=== PATIENT | female | born 1985 | race Caucasian/White ===

== ENCOUNTER 2023-04-28 04:20 | Emergency (ER) | payer OTHER ==
[2023-04-28 04:24] VITALS: BMI 26.2
[2023-04-28] MEDS ORDERED: morphine CARPU-JECT 4 MG/1 ML DISP.SYRIN IVPUSH ONE (04:53)
[2023-04-28] MEDS ORDERED: ONDANSETRON 4 MG/2 ML VIAL IVPUSH ONE (04:53)
[2023-04-28] MEDS ORDERED: LACTATED RINGERS SOLUTION 1000 ML INFUS.BAG IV ONE (04:53)
[2023-04-28] MEDS ORDERED: ONDANSETRON 4 MG/2 ML VIAL ONE (05:12)
[2023-04-28] MEDS ORDERED: morphine SULFATE 4 MG/ML VIAL ONE (05:12)
[2023-04-28] MEDS ORDERED: KETOROLAC TROMETHAMINE 15 MG/ML VIAL IVPUSH ONE (05:57)
[2023-04-28] MEDS ORDERED: KETOROLAC TROMETHAMINE 15 MG/ML VIAL ONE (06:01)
[2023-04-28] MEDS ORDERED: ACETAMINOPHEN 1000 MG/100 ML BAG IVPB ONE (06:17)
[2023-04-28 06:21] LABS: EOS % 1.8 % (0-4.5); HEMATOCRIT 40.9 % (32.4-45.2); HEMOGLOBIN 13.8 GM/dL (10.7-15.3); LYMPH % 38.8 % (8-40); MCH 30.7 pg (25.7-33.7); MCHC 33.7 g/dl (32.0-36.0); MEAN PLT VOLUME 8.3 fl (7.5-11.1); MONO % 7.5 % (3.8-10.2); NEUT % 50.9 % (42.8-82.8); PLATELET COUNT 339 10^3/uL (134-434); RBC 4.49 M/mm3 (3.60-5.2); RDW 12.6 % (11.6-15.6); WHITE BLOOD COUNT 10.4 K/mm3 (4.0-10.0)
[2023-04-28] MEDS ORDERED: ACETAMINOPHEN INJECTION 100 ML IVPB ONE (06:24)
[2023-04-28 06:41] LABS: EPI CELLS >36 /uL (0-25.1); HYALINE CASTS 0 /uL (0-3.1); PH,URINE 6.5 (5.0-8.0); URINE APPEARANCE CLEAR; URINE BACTERIA 400 /uL (0-1359); URINE BILIRUBIN NEGATIVE (NEGATIVE); URINE COLOR YELLOW; URINE GLUCOSE (UA) NEGATIVE (NEGATIVE); URINE KETONE NEGATIVE (NEGATIVE); URINE LEUK ESTERASE NEGATIVE (NEGATIVE); URINE NITRITE NEGATIVE (NEGATIVE); URINE PROTEIN NEGATIVE (NEGATIVE); URINE RBC 27 /uL (0-23.9); URINE UROBILINOGEN 0.2 mg/dL (0.2-1.0); URINE WBC 10 /uL (0-25.8)
[2023-04-28 06:46] LABS: POTASSIUM 3.4 mmol/L (3.5-5.1)
[2023-04-28 06:49] LABS: ALBUMIN 3.7 g/dl (3.4-5.0); CALCIUM 9.8 mg/dL (8.5-10.1); MAGNESIUM 1.9 mg/dL (1.8-2.4)
[2023-04-28 06:52] LABS: CREATININE 0.8 mg/dL (0.55-1.3)
[2023-04-28 06:54] LABS: BILIRUBIN,TOTAL 0.3 mg/dL (0.2-1); TOT PROT 7.4 g/dl (6.4-8.2)
[2023-04-28 10:06] VITALS: TEMP 97.9
[2023-04-28 10:42] LABS: URINE CRYSTALS RARE /hpf; YEAST NONE SEEN (NEGATIVE)
[2023-04-28 11:41] VITALS: BP 110/66; PULSE 59; RESP 16
== END 2023-04-28 11:41 | disposition home or self-care (01) ==
LOC: JER 04:20
PROC: 3E033NZ Introduction of Analgesics, Hypnotics, Sedatives into Peripheral Vein, Percutaneous Approach (ICD-10-PCS; principal; 2023-04-28)
PROC: 3E0333Z Introduction of Anti-inflammatory into Peripheral Vein, Percutaneous Approach (ICD-10-PCS; 2023-04-28)
PROC: 3E033GC Introduction of Other Therapeutic Substance into Peripheral Vein, Percutaneous Approach (ICD-10-PCS; 2023-04-28)
PROC: 3E033GC Introduction of Other Therapeutic Substance into Peripheral Vein, Percutaneous Approach (ICD-10-PCS; 2023-04-28)
DX: R10.11 Right upper quadrant pain (principal); R11.2 Nausea with vomiting, unspecified; K80.20 Calculus of gallbladder without cholecystitis without obstruction; R10.13 Epigastric pain; R19.7 Diarrhea, unspecified
CPT/HCPCS: 36415; 74177-TC; 76705-TC; 80053; 81003; 83690; 83735; 84703; 85025; 87086; 93005; 93010; 99285-25; Q9967

== ENCOUNTER → 2023-06-07 | Day surgery (SDC) | payer OTHER ==
[2023-06-01 11:50] VITALS: BMI 21.0
[~2023-06-07] MED LIST: ACETAMINOPHEN 1000 MG/100 ML BAG IVPB ONE; ACETAMINOPHEN INJECTION 100 ML IVPB ONE; BUPIVACAINE HCL/PF 0.25% (2.5MG/ML) 10 ML VIAL IJ ONE; BUPIVACAINE HCL/PF 0.25% (2.5MG/ML) 10 ML VIAL ONE; DEXAMETHASONE SOD PHOSPHATE 4 MG/1 ML VIAL ONE; FENTANYL CITRATE/PF 50 MCG/ML VIAL ONE; GLYCOPYRROLATE 0.2 MG/1 ML VIAL ONE; KETOROLAC TROMETHAMINE 30 MG/1 ML VIAL ONE; LACTATED RINGERS SOLUTION 1,000 ML IV SCH; LIDOCAINE HCL/PF 2% SDV 5ML VIAL ONE; MIDAZOLAM HCL 2 MG/2 ML SINGLE DOSE VIAL ONE; NEOSTIGMINE METHYLSULFATE 0.5 MG/1 ML - 10 ML MDV ONE; ONDANSETRON 4 MG/2 ML VIAL IVPUSH PRN; ONDANSETRON 4 MG/2 ML VIAL ONE; PROMETHAZINE HCL 25 MG/1 ML VIAL IVPB PRN; PROPOFOL 20 ML ONE; ROCURONIUM BROMIDE 50 MG/5 ML SYRINGE ONE; SEVOFLURANE 250 ML BTL ONE; ceFAZolin SODIUM 1 GM VIAL IVPB ONE; ceFAZolin SODIUM 1 GM VIAL ONE; oxyCODONE HCL 5 MG TABLET ONE; oxyCODONE HCL 5 MG TABLET PO ONE; oxyCODONE HCL 5 MG TABLET PO PRN
[2023-06-07 11:35] VITALS: RESP 16
[2023-06-07 12:56] VITALS: BP 110/71; PULSE 77; TEMP 97.6
== END | disposition home or self-care (01) ==
LOC: JASU-SURG 03:47
PROVIDERS: ATTEND Surgery
PROC: 0FT44ZZ Resection of Gallbladder, Percutaneous Endoscopic Approach (ICD-10-PCS; principal; 2023-06-07 08:00)
DX: K80.80 Other cholelithiasis without obstruction (principal)
CPT/HCPCS: 81025; 88304-TC; 94760

== ENCOUNTER 2023-11-25 13:17 | Emergency (ER) | payer OTHER ==
[2023-11-25 13:29] VITALS: BP 137/83; PULSE 68; RESP 18; TEMP 97.8; BMI 27.3
[2023-11-25] MEDS ORDERED: ACETAMINOPHEN INJECTION 100 ML IVPB ONE (14:20)
[2023-11-25] MEDS: ACETAMINOPHEN 1000 MG/100 ML BAG IVPB ONE (14:24)
[2023-11-25 14:35] LABS: HCG,QUALITATIVE URINE Positive
[2023-11-25 14:36] LABS: URINE APPEARANCE CLEAR; URINE BILIRUBIN NEGATIVE (NEGATIVE); URINE COLOR YELLOW; URINE GLUCOSE (UA) NEGATIVE (NEGATIVE); URINE KETONE TRACE (NEGATIVE); URINE LEUK ESTERASE NEGATIVE (NEGATIVE); URINE NITRITE NEGATIVE (NEGATIVE); URINE PROTEIN NEGATIVE (NEGATIVE); URINE UROBILINOGEN 0.2 mg/dL (0.2-1.0)
[2023-11-25 14:38] LABS: BASO % 0.2 % (0-2.0); HEMATOCRIT 38.4 % (32.4-45.2); HEMOGLOBIN 13.1 GM/dL (10.7-15.3); LYMPH % 21.7 % (8-40); MCH 31.8 pg (25.7-33.7); MCHC 34.2 g/dl (32.0-36.0); MEAN CELL VOLUME 93.1 fl (80-96); MEAN PLT VOLUME 7.4 fl (7.5-11.1); MONO % 6.3 % (3.8-10.2); NEUT % 70.8 % (42.8-82.8); PLATELET COUNT 310 10^3/uL (134-434); RBC 4.13 M/mm3 (3.60-5.2); RDW 14.2 % (11.6-15.6); WHITE BLOOD COUNT 14.1 K/mm3 (4.0-10.0)
[2023-11-25 14:52] LABS: POTASSIUM 3.7 mmol/L (3.5-5.1)
[2023-11-25 14:54] LABS: CALCIUM 8.8 mg/dL (8.5-10.1)
[2023-11-25 14:55] LABS: ALBUMIN 3.2 g/dl (3.4-5.0); BLOOD UREA NITROGEN 8.2 mg/dL (7-18)
[2023-11-25 14:58] LABS: CREATININE 0.5 mg/dL (0.55-1.3)
[2023-11-25 15:00] LABS: BILIRUBIN,TOTAL 0.3 mg/dL (0.2-1); TOT PROT 6.8 g/dl (6.4-8.2)
== END 2023-11-25 18:09 | disposition home or self-care (01) ==
LOC: JER 13:17
PROC: 3E030NZ Introduction of Analgesics, Hypnotics, Sedatives into Peripheral Vein, Open Approach (ICD-10-PCS; principal; 2023-11-25)
DX: O26.892 Other specified pregnancy related conditions, second trimester (principal); R10.2 Pelvic and perineal pain; R10.31 Right lower quadrant pain; R10.32 Left lower quadrant pain; O26.612 Liver and biliary tract disorders in pregnancy, second trimester; R74.01 Elevation of levels of liver transaminase levels; Z3A.18 18 weeks gestation of pregnancy
CPT/HCPCS: 36415; 76801-TC; 80053; 81003; 84702; 84703; 85025; 86850; 86900; 86901; 87086; 99284-25; J0131

== ENCOUNTER 2024-04-24 08:17 | Inpatient (IN) | payer OTHER ==
[2024-04-24 09:40] VITALS: BMI 31.5
[2024-04-24] MEDS: ELECTROLYTE-148 SOLN 1,000 ML IV SCH (09:45)
[2024-04-24 09:46] LABS: BASO % 0.4 % (0-2.0); EOS % 0.7 % (0-4.5); HEMATOCRIT 39.9 % (32.4-45.2); HEMOGLOBIN 13.8 GM/dL (10.7-15.3); LYMPH % 23.1 % (8-40); MCH 32.7 pg (25.7-33.7); MCHC 34.5 g/dl (32.0-36.0); MEAN CELL VOLUME 94.9 fl (80-96); MEAN PLT VOLUME 8.2 fl (7.5-11.1); MONO % 5.8 % (3.8-10.2); PLATELET COUNT 232 10^3/uL (134-434); RDW 13.4 % (11.6-15.6); WHITE BLOOD COUNT 8.1 K/mm3 (4.0-10.0)
[2024-04-24 09:51] LABS: INR 0.89 (0.83-1.09); PROTHROMBIN TIME (PATIENT) 10.3 SEC (9.7-13.0)
[2024-04-24 09:54] LABS: ACTIVATED PTT 26.9 SECONDS (25.2-36.5)
[2024-04-24 10:01] LABS: POTASSIUM 3.7 mmol/L (3.5-5.1)
[2024-04-24 10:04] LABS: BLOOD UREA NITROGEN 14.6 mg/dL (7-18)
[2024-04-24 10:06] LABS: CREATININE 0.8 mg/dL (0.55-1.3)
[2024-04-24] MEDS: DINOPROSTONE 10 MG VAGINAL SUPPOSITORY VG ONE ×2 (10:38→22:15)
[2024-04-24 12:17] LABS: POTASSIUM 3.9 mmol/L (3.5-5.1)
[2024-04-24 12:20] LABS: ALBUMIN 2.6 g/dl (3.4-5.0); BLOOD UREA NITROGEN 13.1 mg/dL (7-18)
[2024-04-24 12:23] LABS: CREATININE 0.7 mg/dL (0.55-1.3)
[2024-04-24 12:24] LABS: BILIRUBIN,TOTAL 0.4 mg/dL (0.2-1)
[2024-04-24 12:25] LABS: TOT PROT 5.9 g/dl (6.4-8.2)
[2024-04-24 14:06] LABS: URINE APPEARANCE CLEAR; URINE BILIRUBIN NEGATIVE (NEGATIVE); URINE COLOR YELLOW; URINE GLUCOSE (UA) NEGATIVE (NEGATIVE); URINE KETONE 1+ (NEGATIVE); URINE LEUK ESTERASE NEGATIVE (NEGATIVE); URINE NITRITE NEGATIVE (NEGATIVE); URINE PROTEIN NEGATIVE (NEGATIVE)
[2024-04-25] MEDS ORDERED: MISOPROSTOL 25 MCG TABLET (COMPOUNDED BY PHARMACY) BUC SCH (12:00)
[2024-04-25] MEDS: MISOPROSTOL 25 MCG TABLET (COMPOUNDED BY PHARMACY) BUC SCH (12:28)
[2024-04-25] MEDS: DEXTROSE 5%-LACTATED RINGERS 1,000 ML IV SCH (16:30)
[2024-04-25] MEDS: MISOPROSTOL 25 MCG TABLET (COMPOUNDED BY PHARMACY) PO ONE (18:39)
[2024-04-25] MEDS ORDERED: TERBUTALINE SULFATE 1 MG/1 ML VIAL SQ ONE (19:20)
[2024-04-25] MEDS: TERBUTALINE SULFATE 1 MG/1 ML VIAL SQ ONE (19:25)
[2024-04-25] MEDS ORDERED: FENTANYL CITRATE/PF 50 MCG/ML VIAL ONE (21:22)
[2024-04-25] MEDS ORDERED: PHENYLEPHRINE HCL 10 MG/1 ML SINGLE DOSE VIAL ONE (21:22)
[2024-04-25] MEDS ORDERED: OXYTOCIN 10 UNITS/ML VIAL ONE (21:22)
[2024-04-25] MEDS ORDERED: morphine SULFATE/PF 1 MG/2 ML (2cc Syringe - QUVA) ONE (21:22)
[2024-04-25] MEDS ORDERED: KETOROLAC TROMETHAMINE 30 MG/1 ML VIAL ONE (21:22)
[2024-04-25] MEDS ORDERED: ONDANSETRON 4 MG/2 ML VIAL ONE (21:22)
[2024-04-25] MEDS ORDERED: ceFAZolin SODIUM 1 GM VIAL ONE (21:34)
[2024-04-25] MEDS ORDERED: LIGASURE IMPACT TP ONE (22:01)
[2024-04-25] MEDS ORDERED: ONDANSETRON 4 MG/2 ML VIAL IVPUSH PRN (22:37)
[2024-04-25 22:48] LABS: CORD PCO2 38.9 mmHg (30-78); CORD pH 7.283 (7.14-7.44)
[2024-04-25 22:59] LABS: CORD HCO3 20.8 mmHg (20-29); CORD PCO2 54.3 mmHg (30-78); CORD pH 7.201 (7.14-7.44)
[2024-04-25] MEDS: OXYTOCIN 20 UNITS in 0.9% NS 20 UNIT/1,000 ML INFUS.BAG IV SCH (23:02)
[2024-04-25] MEDS ORDERED: OXYTOCIN 20 UNITS in 0.9% NS 20 UNIT/1,000 ML INFUS.BAG IV ONE (23:09)
[2024-04-25] MEDS ORDERED: METHYLERGONOVINE MALEATE 0.2 MG/1 ML AMP IM PRN (23:22)
[2024-04-25] MEDS ORDERED: ACETAMINOPHEN 1000 MG/100 ML BAG IVPB PRN (23:23)
[2024-04-26] MEDS: PROMETHAZINE HCL 25 MG/1 ML VIAL IVPB ONE (02:20)
[2024-04-26] MEDS: BUTORPHANOL TARTRATE 1 MG/ML VIAL IVPB ONE (02:20)
[2024-04-26 07:59] LABS: BASO % 0.2 % (0-2.0); EOS % 0.2 % (0-4.5); HEMATOCRIT 38.3 % (32.4-45.2); HEMOGLOBIN 12.5 GM/dL (10.7-15.3); LYMPH % 12.2 % (8-40); MCH 31.4 pg (25.7-33.7); MCHC 32.7 g/dl (32.0-36.0); MEAN PLT VOLUME 7.9 fl (7.5-11.1); MONO % 7.2 % (3.8-10.2); NEUT % 80.2 % (42.8-82.8); PLATELET COUNT 204 10^3/uL (134-434); RBC 3.99 M/mm3 (3.60-5.2); RDW 13.2 % (11.6-15.6)
[2024-04-26] MEDS ORDERED: oxyCODONE HCL 5 MG TABLET PO PRN ×2 (11:22)
[2024-04-26] MEDS: IBUPROFEN 800 MG/8 ML IJ IVPB PRN (15:39)
[2024-04-26] MEDS ORDERED: BISACODYL 10 MG SUPP.RECT RC PRN (23:22)
[2024-04-27] MEDS: IBUPROFEN 600 MG TABLET (FP) PO PRN (04:14)
[2024-04-27] MEDS: ACETAMINOPHEN 325 MG TABLET (FP) PO PRN (06:10)
[2024-04-27] MEDS: SIMETHICONE 80 MG TAB.CHEW (FP) PO PRN (17:33)
[2024-04-27 21:39] VITALS: RESP 16
[2024-04-28 08:31] LABS: BASO % 0.4 % (0-2.0); EOS % 3.6 % (0-4.5); HEMATOCRIT 35.7 % (32.4-45.2); LYMPH % 23.6 % (8-40); MCH 32.3 pg (25.7-33.7); MCHC 33.6 g/dl (32.0-36.0); MEAN CELL VOLUME 96.3 fl (80-96); MEAN PLT VOLUME 7.7 fl (7.5-11.1); MONO % 6.2 % (3.8-10.2); NEUT % 66.2 % (42.8-82.8); PLATELET COUNT 217 10^3/uL (134-434); RBC 3.71 M/mm3 (3.60-5.2); RDW 13.4 % (11.6-15.6); WHITE BLOOD COUNT 10.6 K/mm3 (4.0-10.0)
[2024-04-28 09:45] VITALS: BP 114/76; PULSE 81; TEMP 98.5
== END 2024-04-28 14:33 | disposition home or self-care (01) | DRG 540 ==
LOC: JLDR 08:17 → J3W 04-26 02:08
PROVIDERS: ADMIT Student in an Organized Health Care Education/Training Program; ATTEND Student in an Organized Health Care Education/Training Program
PROC: 10D00Z1 Extraction of Products of Conception, Low, Open Approach (ICD-10-PCS; principal; 2024-04-25)
PROC: 0UT70ZZ Resection of Bilateral Fallopian Tubes, Open Approach (ICD-10-PCS; 2024-04-25)
DX: O76 Abnormality in fetal heart rate and rhythm complicating labor and delivery (principal); O24.429 Gestational diabetes mellitus in childbirth, unspecified control; Z3A.38 38 weeks gestation of pregnancy; Z37.0 Single live birth; Z30.2 Encounter for sterilization
CPT/HCPCS: 36415; 36600; 80048; 80053; 81003; 82803; 82962; 85025; 85610; 85730; 86780; 86850; 86900; 86901; 88305-TC; 88307-TC